=== PATIENT | male | born 1970 | race Native Hawaiian/Other Pacific Islander ===

== ENCOUNTER 2020-01-07 10:49 | Outpatient (CLI) | payer OTHER ==
[2020-01-07 11:11] LABS: PLATELET COUNT 266 K/uL (142-355)
[2020-01-07 11:32] LABS: POTASSIUM 4.3 mmol/L (3.6-5.2)
== END 2020-01-08 | disposition home or self-care (01) ==
LOC: LABW 10:49
PROVIDERS: Nurse Practitioner
DX: Z00.00 Encounter for general adult medical examination without abnormal findings (principal); R53.83 Other fatigue; E29.1 Testicular hypofunction; Z13.0 Encounter for screening for diseases of the blood and blood-forming organs and certain disorders involving the immune mechanism
CPT/HCPCS: 36415; 80053; 80061; 80074; 82306; 82607; 82746; 84153; 84402; 84403; 84436; 84443; 84480; 85027

== ENCOUNTER 2020-07-27 13:49 | Outpatient (CLI) | payer OTHER | END 2020-07-27 21:57 | disposition home or self-care (01) | LOC: INF 13:49 | PROVIDERS: ATTEND Internal Medicine | DX: Z23 Encounter for immunization (principal) ==

== ENCOUNTER 2021-04-08 08:06 | Outpatient (CLI) | payer OTHER ==
[2021-04-08 09:21] LABS: POTASSIUM 4.2 mmol/L (3.6-5.2)
== END 2021-04-08 19:00 | disposition home or self-care (01) ==
LOC: LABW 08:06
PROVIDERS: ATTEND Nurse Practitioner
DX: R53.83 Other fatigue (principal); E29.1 Testicular hypofunction; Z12.5 Encounter for screening for malignant neoplasm of prostate
CPT/HCPCS: 36415; 80053; 82306; 82607; 84153; 84402; 84403; 84443; 84480

== ENCOUNTER 2021-05-05 18:20 | Emergency (ER) | payer OTHER ==
[~2021-05-05] VITALS: Ht 193 cm; Wt 86.2 kg
[2021-05-05 19:15] LABS: PLATELET COUNT 294 K/uL (142-355)
[2021-05-05 19:17] LABS: POTASSIUM 3.7 mmol/L (3.6-5.2)
[2021-05-05 21:20] VITALS: BP 132/92; TEMP 98.1
== END 2021-05-05 21:20 | disposition home or self-care (01) ==
LOC: ED 18:20
PROVIDERS: Emergency Medicine
DX: R55 Syncope and collapse (principal); T14.8XXA Other injury of unspecified body region, initial encounter; V53.5XXA Driver of pick-up truck or van injured in collision with car, pick-up truck or van in traffic accident, initial encounter; Y92.89 Other specified places as the place of occurrence of the external cause
CPT/HCPCS: 36415; 80048; 85027; 85610; 93005; 96372; 96374; 96375; 99284; J1885; J2175; J2405

== ENCOUNTER 2022-03-17 08:52 | Outpatient (CLI) | payer OTHER ==
[2022-03-17 09:10] LABS: PLATELET COUNT 293 K/uL (142-355)
[2022-03-17 09:43] LABS: POTASSIUM 4.1 mmol/L (3.6-5.2)
== END 2022-03-17 19:30 | disposition home or self-care (01) ==
LOC: LABW 08:52
PROVIDERS: ATTEND Nurse Practitioner
DX: Z12.5 Encounter for screening for malignant neoplasm of prostate (principal); R53.83 Other fatigue; E29.1 Testicular hypofunction
CPT/HCPCS: 36415; 80053; 80061; 82306; 82607; 84153; 84402; 84403; 84436; 84443; 85027

== ENCOUNTER 2022-12-15 08:12 | Outpatient (CLI) | payer OTHER ==
[2022-12-15 08:35] LABS: PLATELET COUNT 270 K/uL (142-355)
[2022-12-15 09:04] LABS: POTASSIUM 4.1 mmol/L (3.6-5.2)
== END 2022-12-15 19:13 | disposition home or self-care (01) ==
LOC: LABW 08:12
PROVIDERS: ATTEND Nurse Practitioner
DX: E78.2 Mixed hyperlipidemia (principal); R53.82 Chronic fatigue, unspecified; Z13.21 Encounter for screening for nutritional disorder; R30.0 Dysuria; E55.9 Vitamin D deficiency, unspecified
CPT/HCPCS: 36415; 80053; 80061; 82306; 82607; 84153; 84403; 84439; 84443; 85027